=== PATIENT | male | born 1945 ===

== ENCOUNTER 2020-12-26 10:15 | Inpatient (IN) | payer OTHER ==
[~2020-12-26] VITALS: Ht 172.7 cm; Wt 65.3 kg
[2020-12-26] MEDS ORDERED: LEVO-T125 MCG PO (14:22)
[2020-12-26] MEDS ORDERED: DILTIAZEM ER240 M3 PO (14:22)
[2020-12-26] MEDS ORDERED: AMIODARONE HCL200 MG PO (14:22)
[2020-12-26] MEDS ORDERED: RESTORIL30 MG PO (14:23)
[2020-12-26] MEDS ORDERED: LATANOPROST 0.7.5 ML OP (14:23)
[2020-12-31] MEDS ORDERED: OXYC1TAB9 PO (13:19)
[2020-12-31] MEDS ORDERED: HYOSCYAMINE0.125 M1 SL (13:19)
== END 2020-12-31 14:02 | disposition home or self-care (01) | DRG 331 ==
LOC: O/R 12-28 06:00 → SURH 12-28 06:00
PROVIDERS: ADMIT Surgery; ATTEND Surgery
PROC: 0DBK4ZZ Excision of Ascending Colon, Percutaneous Endoscopic Approach (ICD-10-PCS; principal; 2020-12-28 07:00)
DX: C18.2 Malignant neoplasm of ascending colon (principal); I10 Essential (primary) hypertension; E03.9 Hypothyroidism, unspecified; R59.9 Enlarged lymph nodes, unspecified; D64.9 Anemia, unspecified; H40.9 Unspecified glaucoma; N18.30 Chronic kidney disease, stage 3 unspecified; M54.10 Radiculopathy, site unspecified; M54.30 Sciatica, unspecified side; K63.89 Other specified diseases of intestine